=== PATIENT | female | born 1965 | race Two or more races ===

== ENCOUNTER 2017-07-18 18:56 | Emergency (ER) | payer MEDICAID ==
[~2017-07-18] VITALS: Ht 160 cm; Wt 74.8 kg
[2017-07-18 22:21] VITALS: BP 153/94
[2017-07-18] MEDS ORDERED: LIDOCAINE 1% (LOCAL ANESTH.) PF 5ml SDV IJ ONE (23:00)
[2017-07-18] MEDS ORDERED: TRIAMCINOLONE 40MG/ML 1ML VIAL IX ONE (23:00)
== END 2017-07-18 23:46 | disposition home or self-care (01) ==
LOC: ER 18:56
DX: M75.02 Adhesive capsulitis of left shoulder (principal); M79.602 Pain in left arm; E11.9 Type 2 diabetes mellitus without complications
CPT/HCPCS: 20610; 73030; 73060; 99284; J3301

== ENCOUNTER 2021-09-22 14:48 | Emergency (ER) | payer MEDICAID ==
[~2021-09-22] VITALS: Ht 160 cm; Wt 73.7 kg
[2021-09-22 16:21] VITALS: BP 146/70
[2021-09-22] MEDS ORDERED: IBUP800T27 PO (17:10)
[2021-09-22] MEDS ORDERED: IBUPROFEN 800 MG TAB PO ONE (17:15)
== END 2021-09-22 17:55 | disposition home or self-care (01) ==
LOC: ER 14:48
DX: S92.354A Nondisplaced fracture of fifth metatarsal bone, right foot, initial encounter for closed fracture (principal); E11.9 Type 2 diabetes mellitus without complications; E78.5 Hyperlipidemia, unspecified; X50.1XXA Overexertion from prolonged static or awkward postures, initial encounter; Y93.01 Activity, walking, marching and hiking; Y92.89 Other specified places as the place of occurrence of the external cause; Y99.8 Other external cause status
CPT/HCPCS: 29515; 73630

== ENCOUNTER 2024-10-04 06:54 | Emergency (ER) | payer MEDICAID ==
[~2024-10-04] VITALS: Ht 160 cm; Wt 75.0 kg
[~2024-10-04 06:54] MED LIST: IBUP-1456 PO
--- NOTE | 2024-10-04 07:25 | ECG ---
[facility] Test Date: 2024-10-04 Test Time: 07:22:09 Pat Name: SERINA MCGOVERN Department: ER Room: Gender: F Corporate Auditor: : [id number] Requested By: STEPHANY PERES Order Number: [id number] Reading MD: Kailash Mahoney Measurements Intervals [place] Rate: 113 P: 71 CT: 154 QRS: 53 QRSD: 95 T: 264 QT: 292 QTc: 401 Interpretive Statements Sinus tachycardia Nonspecific T abnormalities, lateral leads Electronically Signed On 10-05-2024 19:30:23 PDT by Kailash Mahonye Please click the below link to view image of tracing.
--- NOTE | 2024-10-04 07:30 | ED.PDOC ---
GI ASSESSMENT HPI Comments 59-year-old female presents here with vomiting and diarrhea that began last night. She initially started with diarrhea around midnight and vomiting that began at 3:00 a.m.. She states she has had several episodes in the last several hours. She reports she is now dizzy. Reports mild abdominal pain to the epigastric P region. No sick contacts no known food that she may have eaten. No cough cold runny nose fever or chills. Last emesis with proximally 1 hour ago. Nonbloody nonbilious. No recent travel anywhere. No recent antibiotic use. Patient has a diabetic. Chief Complaint: Nausea/Vomiting Time Seen by MD: 07:28 Primary Care Provider: CHERRI Lorenz Notes: Nurses Notes, Medications, Allergies Allergies: Coded Allergies: NO KNOWN ALLERGIES (Unverified , 07/28/14) Home Meds Active Scripts Ibuprofen (Ibuprofen) 800 Mg Tab, 800 MG PO TID PRN, #30 TAB Prov:GARY CASANOVA RUTHY 09/22/21 Information Source: Patient Mode of Arrival: Wheelchair Timing: Hours Duration: Since onset Prehospital treatment: None Quality: None Vomitus: Watery Severity: Moderate Recent: None Recent Hx of: None Pain Location: None Modifying Factors: Nothing Associated sign and symptoms: Nausea, Vomiting Past Medical History PAST MEDICAL HISTORY: DM, High Lipids Surgical History: Denies all surgeries PROJECT MANAGEMENT CONSULTANT History: No Pertinent PROJECT MANAGEMENT CONSULTANT History Family History Family History: Reviewed,noncontributory to illness, Family hx of DM Social History Smoker: Non-Smoker Alcohol: Denies ETOH Use Drugs: Denies Drug Use Lives In: Home Constitutional: denies: chills, diaphoresis, fatigue, fever, malaise, sweats, weakness, others EENTM: denies: blurred vision, double vision, ear bleeding, ear discharge, ear drainage, ear pain, ear ringing, eye pain, eye redness, hearing loss, mouth pain, mouth swelling, nasal discharge, nose bleeding, nose congestion, nose dinorah n, photophobia, tearing, throat pain, throat swelling, voice changes, others Respiratory: denies: cough, hemoptysis, orthopnea, SOB at rest, shortness of breath, SOB with excertion, stridor, wheezing, others Cardiovascular: denies: chest pain, dizzy spells, diaphoresis, Dyspnea on exertion, edema, irregular heart beat, left arm pain, lightheadedness, palpitations, PND, syncope, others Gastrointestinal: reports: nausea, vomiting; denies: abdomen distended, abdominal pain, blood streaked bowels, constipated, diarrhea, dysphagia, difficulty swallowing, hematemesis, melena, poor appetite, poor fluid intake, rectal bleeding, rectal pain, others Genitourinary: denies: abnormal vagina bleeding, burning, dyspareunia, dysuria, flank pain, frequency, hematuria, incontinence, pain, , vagina discharge, urgency, others Neurological: denies: dizziness, fainting, headache, left sided numbness, left sided weakness, numbness, paresthesia, pre-existing deficit, right sided numbness, right sided weakness, seizure, speech problems, tingling, tremors, weakness, others Musculoskeletal: denies: back pain, gout, joint pain, joint swelling, muscle pain, muscle stiffness, neck pain, others Integumetry: denies: bruises, change in color, change in hair/nails, dryness, laceration, lesions, lumps, rash, wounds, others Allergic/Immunocompromised: denies: Difficulty Healing, Frequent Infections, Hives, Itching, others Hematologic/Lymphatic: denies: anemia, blood clots, easy bleeding, easy bruising, swollen glands, others Endocrine: denies: excessive hunger, excessive sweating, excessive thirst, excessive urination, flushing, intolerance to cold, intolerance to heat, unexplained weight gain, unexplained weight loss, others Psychiatric: denies: anxiety, bipolar disorder, depression, hopeless, panic disorder, schizophrenia, sleepless, suicidal, others All Other Systems: Reviewed and Negative Physical Exam General Appearance: No Apparent Distress, Normal HEENT: Normal ENT Inspection, Pharynx Normal Neck: Full Range of Motion, Non-Tender, Normal, Normal Inspection Respiratory: Chest Non-Tender, Lungs Clear, No Accessory Muscle Use, No Respiratory Distress, Normal Breath Sounds Cardiovascular: No Edema, No Murmur, No Gallop, Normal Peripheral Pulses, Tachycardia Breast Exam: Deferred Gastrointestinal: No Organomegaly, Non Tender, No Pulsatile Mass, Normal Bowel Sounds, Soft Genitalia: Deferred Pelvic: Deferred Rectal: Deferred Extremities: No calf tenderness, Normal capillary refill, Normal inspection, Normal range of motion, Non-tender, No pedal edema Musculoskeletal : Apperance: Normal Neurologic: Alert, brush clearing laborer II-XII nml as Tested, No Motor Deficits, Normal Affect, Normal Mood, No Sensory Deficits, Other (5/5 strength bilateral upper and lower extremity. Intact alternating movements of the arms. Intact [id number] bilaterally.) Cerebellar Function: Normal Reflexes: Normal Skin: Dry, Normal Color, Warm Lymphatic: No Adenopathy EKG EKG : Comments Sinus tachycardia rate of [address] changes Was a procedure done? Was a procedure done?: No GI differential Dx Differential Diagnosis: Gastritis/PUD, Gastroenteritis, Electrolyte Imbalance, Food Poisoning, Bacterial, Viral Other Differential Diagnosis Viral gastroenteritis food poisoning acute coronary syndrome, electrolyte disturbance dehydration, vertigo, stroke X-Ray, Labs, Meds, VS Vital Signs Date Time Temp Pulse Resp B/P (MAP) Pulse Ox O2 Delivery O2 Flow Rate FiO2 10/04/24 09:27 101 16 98 Room Air 10/04/24 09:27 97.9 101 16 105/65 (78) 98 97.9 10/04/24 07:22 113 10/04/24 07:19 98.1 114 16 125/77 (93) 99 98.1 Lab Test 10/04/24 09:05 10/04/24 07:34 10/04/24 07:32 Range/Units White Blood Count 12.3 H 4.4-10.8 10^3/uL Red Blood Count 5.57 H 4.0-5.20 10^6/uL Hemoglobin 16.9 H 12.2-16.2 g/dL Hematocrit 49.6 H 36.0-46.0 % Mean Corpuscular Volume 88.9 80.0-100.0 fL Mean Corpuscular Hemoglobin 30.4 28.0-32.0 pg Mean Corpuscular Hemoglobin Concent 34.2 32.0-36.0 g/dL Red Cell Distribution Width 13.4 11.8-14.3 % Platelet Count 291 140-450 10^3/uL Mean Platelet Volume 8.1 6.9-10.8 fL Neutrophils (%) (Auto) 89.2 H 37.0-80.0 % Lymphocytes (%) (Auto) 6.4 L 10.0-50.0 % Monocytes (%) (Auto) 4.2 0.0-12.0 % Eosinophils (%) (Auto) 0.2 0.0-7.0 % Basophils (%) (Auto) 0.0 0.0-2.0 % Neutrophils # (Auto) 10.9 H 1.6-8.6 10 ^3/uL Lymphocytes # (Auto) 0.8 0.4-5.4 10 ^3/uL Monocytes # (Auto) 0.5 0-1.3 10 ^3/uL Eosinophils # (Auto) 0 0-0.8 10 ^3/uL Basophils # (Auto) 0 0-0.2 10 ^3/uL Nucleated Red Blood Cells 0.0 % Sodium Level 142 136-145 mmol/L Potassium Level 4.0 3.5-5.1 mmol/L Chloride Level 104 98-107 mmol/L Carbon Dioxide Level 27 20-31 mmol/L Anion Gap 11 5-15 Blood Urea Nitrogen 16 9-23 mg/dL Creatinine 0.76 0.550-1.02 mg/dL Glomerular Filtration Rate Calc 90 >90 mL/min BUN/Creatinine Ratio 21.1 H 10.0-20.0 Serum Glucose 170 H 74-106 mg/dL Calcium Level 11.3 H 8.7-10.4 mg/dL Total Bilirubin 0.7 0.2-1.0 mg/dL Aspartate Amino Transferase (AST) 23 13-40 U/L Alanine Aminotransferase (ALT) 35 7-40 U/L Alkaline Phosphatase 70 46-116 U/L Total Protein 8.0 5.7-8.2 g/dL Albumin 5.1 H 3.2-4.8 g/dL Beta-Hydroxybutyric Acid 0.399 < 0.4 mmol/L POC Glucose 196 H 212 H 70-106 mg/dl 59-year-old female presents here with vomiting diarrhea and mild epigastric abdominal pain. EKG has been done which demonstrates sinus tachycardia. Suspec t likely dehydration given she has been having significant episodes of vomiting and diarrhea. I have ordered CBC, CMP that are pending including beta hydroxybutyrate and urinalysis. Considered possible DKA., cholelithiasis. Cholecystitis. Pancreatitis. At this time patient has been ordered IV fluids, Zofran in the ER. Abdomen soft nontender on my examination. Doubt acute surgical pathology. Labs have returned which demonstrate an elevated hemoglobin of 16.9. This could be secondary to dehydration. CMP otherwise unremarkable. Patient has a normal anion gap. Does not appear to be in DKA. Blood sugar initially to 212 and 196. Patient's plan continues to be IV fluids and Zofran. However due to significant shortage of nursing staff, there was significant delay in treatment,and patient eloped before treatment. Time of 1ST Reevaluation: 07:58 Reevaluation 1ST: Unchanged Patient Education/Counseling: Diagnosis, Treatment Family Education/Counseling: No Family Present SEPSIS Sepsis Screen Date sepsis recognized/suspect: Oct 04, 2024 Time Sepsis recognized/suspect: 655 Recent Procedure: No On Antibiotic Therapy: No Respiratory Rate >20: No Heart Rate >90: No Temp<36 C (96.8 F) or >38.3 C: No SBP <90 or MAP <65 mmHG: No New Acute Mental Status Change: No Is the patient on CPAP, BIPAP,: No Physician Orders Urinalysis (10/04/24 08:26) Vital Signs Date Time Temp Pulse Resp B/P (MAP) Pulse Ox O2 Delivery O2 Flow Rate FiO2 10/04/24 09:27 101 16 98 Room Air 10/04/24 09:27 97.9 101 16 105/65 (78) 98 97.9 10/04/24 07:22 113 10/04/24 07:19 98.1 114 16 125/77 (93) 99 98.1 Laboratory Tests Test 10/04/24 09:05 White Blood Count 12.3 10^3/uL (4.4-10.8) H Departure 1 Departure Time of Disposition: 09:58 Impression: Primary Impression: Gastroenteritis Additional Impressions: Hyperglycemia Tachycardia Dehydration Disposition: 07 LEFT AWOL/ELOPED Condition: Fair Critical Care Note Critical Care Time?: No Stability Stability form required: No Heart Score Heart Score: Heart Score Response (Comments) Value History N/A 0 EKG N/A 0 Age N/A 0 Risk Factors N/A 0 Troponin N/A 0 Total 0 I personally scribed for STEPHANY PERES MD ([email or web address]) on 10/04/24 at 07:30. Electronically submitted by Eveline Renner [email or web address]). STEPHANY PERES MD Oct 04, 2024 07:30
[2024-10-04] MEDS ORDERED: ONDANSETRON HCL 4 MG/2 ML VIAL IV ONE (08:30)
[2024-10-04] MEDS ORDERED: SODIUM CHLORIDE 0.9% 1,000 ML IV ONE (08:30)
[2024-10-04 09:27] VITALS: BP 105/65; PULSE 101; RESP 16; TEMP 97.9; O2SAT 98
[2024-10-04 09:36] LABS: Hematocrit 49.6 % (36.0-46.0); Hemoglobin 16.9 g/dL (12.2-16.2); Mean Corpuscular Hemoglobin 30.4 pg (28.0-32.0); Mean Corpuscular Volume 88.9 fL (80.0-100.0); Nucleated Red Blood Cells % 0.0 %
[2024-10-04 09:54] LABS: Alanine Aminotransferase 35 U/L (7-40); Alkaline Phosphatase 70 U/L (46-116); Anion Gap 11 (5-15); BUN/Creatinine Ratio 21.1 (10.0-20.0); Blood Urea Nitrogen 16 mg/dL (9-23); Carbon Dioxide 27 mmol/L (20-31); Chloride 104 mmol/L (98-107); Potassium 4.0 mmol/L (3.5-5.1); Sodium 142 mmol/L (136-145); Total Protein 8.0 g/dL (5.7-8.2)
[2024-10-04 09:55] LABS: Bilirubin, Total 0.7 mg/dL (0.2-1.0)
[2024-10-04 10:02] LABS: Albumin 5.1 g/dL (3.2-4.8); Calcium 11.3 mg/dL (8.7-10.4); Glucose 170 mg/dL (74-106)
== END 2024-10-04 12:50 | disposition left against medical advice (07) ==
LOC: ER 06:54
DX: K52.9 Noninfective gastroenteritis and colitis, unspecified (principal); E11.65 Type 2 diabetes mellitus with hyperglycemia; E86.0 Dehydration; R00.0 Tachycardia, unspecified; E78.5 Hyperlipidemia, unspecified; Z79.899 Other long term (current) drug therapy
CPT/HCPCS: 36415; 80053; 82010; 82947; 82962; 85025; 93005